=== PATIENT | male | born 1940 | race Caucasian/White ===

== ENCOUNTER 2017-08-13 00:57 | Emergency (ER) | payer OTHER ==
[~2017-08-13] VITALS: Ht 167.6 cm; Wt 61.2 kg
[~2017-08-13 00:57] MED LIST: ASPIR 8181 MG PO; ASPIRIN EC81 M1 PO; ASPIRIN325 PO; ASPIRIN81 M2 PO; ATORVASTATIN CA40 MG PO; AUGMENTIN 875875 MG PO; AVODART0.5 MG PO; CIPRO500 MG PO; COD LIVER OIL1 EAC5 PO; COLACE 100 MG100 MG PO; DULCOLAX STOOL100 MG PO; ERIVEDGE150 MG PO; FERREX-150 PLU150 MG PO; FLOMAX0.4 MG PO; FLONASE 0.05%50 MCG NASAL; FOSINOPRIL 10 M10 M1 PO; GLIPIZIDE 10 MG10 MG PO; GLIPIZIDE ER2.5 MG PO; GLUCOPHAGE850 MG PO; GLUCOTROL10 MG PO; GLUCOTROL5 MG PO; GLYBURIDE 1.21.25 M1 PO; HIGH POTENCY I134 MG PO; HYDROCODON-ACE1 EAC7 PO; IRON325 PO; LANTUS100 UNIT/M SUBQ; LEVEMIR FL100 UNIT/1 SQ; LEVEMIR SUBQ; LIPITOR 20 MG T20 M1 PO; LISINOPRIL10 MG PO; LISINOPRIL2.5 MG PO; LISINOPRIL20 MG PO; LISINOPRIL40 MG PO; LOPRESSOR 50 MG50 M1 PO; LOPRESSOR25 PO; LOVASTAT10 PO; MELOXICAM15 MG PO; METFORMIN HCL500 MG PO; MEVACOR40 MG PO; MIRALAX17 GM PO; MOBIC7.5 MG PO; MOM; MULTIVITAMINS1 EAC7 PO; NIACIN500 MG PO; NITROGLYCERIN0.4 MG SUBLING; NITROSTAT0.4 MG SL; NORVASC 5 MG TAB5 MG PO; NORVASC2.5 MG PO; NYSTATIN 1100000 U/M SW&SWALLOW; PANTOPRAZOLE SO40 M1 PO; PERCOCET 5-3251 EACH PO; PERIDEX 0.12%473 M1 MUCOUS MEM; PHISOHEX148 ML TP; PRINIVIL20 MG PO; PROTONIX40 M1 PO; REGLAN 10 MG TA10 MG PO; SIMVASTATIN40 MG PO; SIMVASTATIN80 MG PO; SLO-NIACIN500 MG PO; TAMSULOSIN HCL0.4 M1 PO; TUMS E.S.750 MG PO; UNICOMPLEX M TA1 TA1 PO; VIAGRA50 MG PO; ZESTRIL40 MG PO; ZOCOR80 MG PO; [UNRECOGNIZED DRUG - OTHER]; glucometer
[2017-08-13 01:33] LABS: BE -3.3 mmol/L (-2 to +3); HCO3 21.5 mmol/L (22.0-26.0); PCO2 38.2 mmHg (35.0-45.0); PO2 80.9 mmHg (75.0-100.0); pH 7.369 (7.340-7.450)
[2017-08-13 01:38] LABS: HEMATOCRIT 41.8 % (42.0-52.0); HEMOGLOBIN 13.9 gm/dL (14.0-18.0); MCHC 33.2 g/dL (28.0-37.0); MCV 87.4 fL (80.0-100.0); MPV 9.3 fl. (7.2-11.1); NUCLEATED RBCS 0 /100WBC; PLATELET COUNT* 259 thou/uL (150-400); RBC 4.78 mil/uL (4.50-6.00); RDW-CV 14.6 % (10.5-14.5); WBC 9.7 thou/uL (4.0-11.0)
[2017-08-13 01:47] LABS: URINE BILIRUBIN NEGATIVE (Negative); URINE BLOOD 1+ (Negative); URINE CLARITY CLEAR; URINE COLOR YELLOW; URINE GLUCOSE-RANDOM 3+ (Negative); URINE KETONES 1+ (Negative); URINE LEUKOCYTES-REFLEX NEGATIVE (Negative); URINE NITRITE-REFLEX NEGATIVE (Negative); URINE PROTEIN 1+ (Negative); URINE SPECIFIC GRAVITY 1.025 (1.005-1.030); URINE UROBILINOGEN 0.2 E.U./dl (0.2-1.0)
[2017-08-13 01:51] LABS: ALBUMIN 3.7 g/dL (3.4-5.0); ALKALINE PHOSPHATASE 117 U/L (46-116); ANION GAP 12 mmol/L (7-16); BUN 20 mg/dL (7-18); CALCIUM 8.9 mg/dL (8.5-10.1); CHLORIDE 100 mmol/L (98-107); CO2 24 mmol/L (21-32); CREATININE 1.8 mg/dL (0.6-1.3); GLUCOSE 321 mg/dL (70-99); POTASSIUM 3.7 mmol/L (3.5-5.1); SGOT 17 U/L (15-37); SGPT 20 U/L (30-65); SODIUM 136 mmol/L (136-145); TOTAL BILIRUBIN 0.6 mg/dL (<0.1-1.0); TOTAL PROTEIN 7.9 g/dL (6.4-8.2); TROPONIN-I LEVEL <0.06 ng/mL (<0.06)
[2017-08-13 01:56] LABS: COARSE GRANULAR CASTS 0-3 Few /LPF (None Seen); CRYSTALS None Seen /LPF (None Seen); FINE GRANULAR CASTS 0-3 Few /LPF (None Seen); HYALINE CASTS 0-3 Few /LPF (None Seen); MUCUS 4-6 Moderate strn/LPF (None Seen); SQUAMOUS 0-3 Few /LPF (0-3); URINE WBC-REFLEX None Seen /HPF (0-5)
[2017-08-13 02:29] LABS: ABSOLUTE BASOPHILS 0.1 thou/uL (0.0-0.2); ABSOLUTE EOSINOPHILS 0.1 thou/uL (0.0-0.7); ABSOLUTE LYMPHOCYTES 0.5 thou/uL (0.8-5.3); ABSOLUTE MONOCYTES 0.7 thou/uL (0.0-1.2); ABSOLUTE NEUTROPHILS 8.3 thou/uL (1.6-8.1); ANISOCYTOSIS Occasional; PLATELET ESTIMATE ADEQUATE; TOXIC GRANULATION 1+
[2017-08-13] MEDS ORDERED: KEFLEX500 M1 PO (03:54)
[2017-08-13] MEDS ORDERED: ZOFRAN ODT4 MG PO (03:54)
[2017-08-13 04:40] VITALS: BP 145/83
--- NOTE | 2017-08-13 13:06 | EKG ---
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1940 Requested By: Lashon Dobbins Order Number: [id number] MD: Michael Montanez Measurements Intervals [place] Rate: 73 P: 38 MA: 225 QRS: 17 QRSD: 102 T: 82 QT: 433 QTc: 478 Interpretive Statements Sinus rhythm Atrial premature complex Prolonged [place] interval Left ventricular hypertrophy Borderline prolonged QT interval Compared to ECG 08/25/2015 03:46:14 Atrial premature complex(es) now present Left ventricular hypertrophy now present ST (T wave) deviation now present Sinus arrhythmia no longer present Electronically Signed On 08-13-2017 13:06:35 CDT by Michael Montanez [email or web address] <ELECTRONICALLY SIGNED> By: Michael Montanez MD, [facility] 08/13/17 1306 [id number] Michael Montanez MD, [facility] /EPI
== END 2017-08-13 04:42 | disposition home or self-care (01) ==
LOC: M.ERS 00:57
PROVIDERS: Personal Emergency Response Attendant
DX: N39.0 Urinary tract infection, site not specified (principal); R11.2 Nausea with vomiting, unspecified; E11.9 Type 2 diabetes mellitus without complications; E78.00 Pure hypercholesterolemia, unspecified; F41.9 Anxiety disorder, unspecified; Z95.1 Presence of aortocoronary bypass graft; Z85.828 Personal history of other malignant neoplasm of skin; Z79.4 Long term (current) use of insulin

== ENCOUNTER 2017-09-09 11:29 | Emergency (ER) | payer OTHER ==
[~2017-09-09] VITALS: Ht 180.3 cm; Wt 88.5 kg
[~2017-09-09 11:29] MED LIST changes: +KEFLEX500 M1 PO; +ZOFRAN ODT4 MG PO
[2017-09-09] MEDS ORDERED: VITAMIN D22000 UNIT PO (11:52)
[2017-09-09] MEDS ORDERED: LEVEMIR100 UNIT/1 SUBQ (11:52)
[2017-09-09] MEDS ORDERED: PROTONIX40 M1 PO (11:53)
[2017-09-09] MEDS ORDERED: ARICEPT10 M1 PO (11:53)
[2017-09-09] MEDS ORDERED: LIPITOR 20 MG T20 M1 PO (11:53)
[2017-09-09 12:12] LABS: ABSOLUTE EOSINOPHILS 0.2 thou/uL (0.0-0.7); ABSOLUTE LYMPHOCYTES 1.5 thou/uL (0.8-5.3); ABSOLUTE MONOCYTES 0.7 thou/uL (0.0-1.2); ABSOLUTE NEUTROPHILS 7.1 thou/uL (1.6-8.1); BASOPHILS 0.5 %; EOSINOPHILS 1.9 %; HEMATOCRIT 41.9 % (42.0-52.0); HEMOGLOBIN 13.8 gm/dL (14.0-18.0); LYMPHOCYTES 15.4 %; MCH 28.7 pg (26.0-34.0); MCV 86.9 fL (80.0-100.0); MONOCYTES 7.8 %; MPV 9.2 fl. (7.2-11.1); NUCLEATED RBCS 0 /100WBC; PLATELET COUNT* 221 thou/uL (150-400); POLYS 74.4 %; RBC 4.82 mil/uL (4.50-6.00); RDW-CV 14.6 % (10.5-14.5); WBC 9.6 thou/uL (4.0-11.0)
[2017-09-09 12:26] LABS: ANION GAP 12 mmol/L (7-16); BUN 17 mg/dL (7-18); CALCIUM 8.8 mg/dL (8.5-10.1); CHLORIDE 100 mmol/L (98-107); CO2 23 mmol/L (21-32); CREATININE 1.8 mg/dL (0.6-1.3); GLUCOSE 143 mg/dL (70-99); POTASSIUM 3.5 mmol/L (3.5-5.1); SODIUM 135 mmol/L (136-145)
[2017-09-09 12:27] LABS: APTT 30.3 Seconds (25.0-31.3); INR 1.2; PROTIME 11.6 Seconds (9.20-11.50)
[2017-09-09 12:37] LABS: ALBUMIN 3.3 g/dL (3.4-5.0); ALKALINE PHOSPHATASE 91 U/L (46-116); NT-PRO BRAIN NAT PEPTIDE 160 pg/mL (<300); SGOT 25 U/L (15-37); SGPT 17 U/L (30-65); TOTAL BILIRUBIN 0.5 mg/dL (<0.1-1.0); TOTAL PROTEIN 7.1 g/dL (6.4-8.2); TROPONIN-I LEVEL <0.06 ng/mL (<0.06)
[2017-09-09 14:16] VITALS: BP 133/94
--- NOTE | 2017-09-09 15:14 | EKG ---
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 : 1940 Requested By: Erwin Barros Order Number: [id number] MD: Giovanny Deleon Measurements Intervals [place] Rate: 75 P: 18 [place]: 213 QRS: 6 QRSD: 92 T: 108 QT: 397 QTc: 444 Interpretive Statements Sinus rhythm Supraventricular bigeminy Borderline prolonged [place] interval LVH with secondary repolarization abnormality Compared to ECG 08/13/2017 01:32:08 Early repolarization now present Electronically Signed On 09-09-2017 15:14:38 CDT by Giovanny Deleon [email or web address] <ELECTRONICALLY SIGNED> By: Giovanny Deleon MD, [facility] 09/09/17 1514 [id number] [id number] Giovanny Deleon MD, [facility] /EPI
== END 2017-09-09 14:39 | disposition home or self-care (01) ==
LOC: M.ERS 11:29
PROVIDERS: Emergency Medicine Emergency Medical Services
DX: E11.649 Type 2 diabetes mellitus with hypoglycemia without coma (principal); E78.00 Pure hypercholesterolemia, unspecified; F41.9 Anxiety disorder, unspecified; Z85.828 Personal history of other malignant neoplasm of skin; Z79.4 Long term (current) use of insulin